=== PATIENT | male | born 1945 | race Caucasian/White ===

== ENCOUNTER 2019-03-25 01:23 | Inpatient (IN) | payer MEDICARE, OTHER ==
[~2019-03-25] VITALS: Ht 188 cm; Wt 102.9 kg
[~2019-03-25 01:23] MED LIST: ASCO500; ASPI81CH PO; CLARITIN10 MG; PRAV20 PO
[2019-03-25 02:10] LABS: BASOPHILS ABSOLUTE AUTO 0.06 K/mm3 (0.00-0.23); BASOPHILS PERCENT AUTO 1 % (0-2); EOSINOPHILS ABSOLUTE AUTO 0.27 K/mm3 (0.00-0.68); EOSINOPHILS PERCENT AUTO 3 % (0-6); Hematocrit 45.7 % (37.0-53.0); Hemoglobin 15.2 g/dL (13.5-17.5); IMMATURE GRAN ABSOLUTE AUTO 0.02 K/mm3 (0.00-0.10); IMMATURE GRAN PERCENT AUTO 0 % (0-1); LYMPHOCYTES PERCENT AUTO 36 % (21-46); MONOCYTES ABSOLUTE AUTO 0.66 K/mm3 (0.16-1.47); MONOCYTES PERCENT AUTO 8 % (4-13); Mean Corpuscular HGB 32.2 pg (26.0-34.0); Mean Corpuscular HGB Conc 33.3 g/dL (31.5-36.5); Mean Corpuscular Volume 97 fL (80-100); Mean Platelet Volume 9.8 fL (9.1-12.4); NEUTROPHILS ABSOLUTE AUTO 4.59 K/mm3 (1.96-9.15); NEUTROPHILS PERCENT AUTO 53 % (41-73); Platelet Count 241 K/mm3 (150-400); RDW Coefficient Variation 13.1 % (11.7-14.2); RDW Standard Deviation 47.1 fL (35.1-46.3); Red Blood Cell Count 4.72 M/mm3 (4.30-5.90)
[2019-03-25 02:29] LABS: Alanine Aminotransfer (ALT/SGP 20 U/L (12-78); Albumin, Blood 3.8 g/dL (3.4-5.0); Albumin/Globulin Ratio 1.2 (0.8-1.8); Alk Phos 72 U/L (50-136); Anion Gap 6 mmol/L (6-16); Aspartate Aminotrans (AST/SGOT 18 U/L (12-37); Bilirubin, Total 0.2 mg/dL (0.1-1.0); Blood Urea Nitrogen 20 mg/dL (8-24); Bun/Creatinine Ratio 27.3 (12.0-20.0); CO2, Blood 29 mmol/L (21-32); Calcium, Blood 8.9 mg/dL (8.5-10.1); Chloride, Blood 109 mmol/L (98-108); Creatinine, Blood 0.73 mg/dL (0.60-1.20); Globulin, Blood 3.3 g/dL (2.2-4.0); Glomerular Filtration Rate >60 (60-); Glucose, Blood 116 mg/dL (70-99); Potassium, Blood 4.2 mmol/L (3.5-5.5); Sodium, Blood 144 mmol/L (136-145); Total Protein, Blood 7.1 g/dL (6.4-8.2); Troponin I 0.033 ng/mL (0.000-0.040)
--- NOTE | 2019-03-25 06:34 | NUR ---
SHIFT SUMMARY PT NEW ADMIT TO FLOOR THIS AM AROUND 0500. AOX4. VSS. DENIES N/V/D, SOB. ADMITTED FOR CHEST PAIN/PRESSURE, HOWEVER DENIES ANY CHEST DISCOMFORT/PAIN OR PRESSURE DURING ASSESSMENT. TELE IN PLACE & PT SINUSBRADY W/HR 58 PER PCU PSYCHOLOGIST EXPERIMENTAL. STATES HE FELT CONFUSED WHEN HAVING CHEST PAIN EARLIER BUT NO LONGER IS CONFUSED. NPO EXCEPT MEDS & ICE CHIPS UNTIL STRESS TEST IS PERFORMED. @BEDSIDE. PT INDEPENDENT IN ROOM, HAS STEADY GAIT. CALL LIGHT IN REACH.
--- NOTE | 2019-03-25 10:00 | NUR ---
RECEIVED REPORT VIA TELEPHONE FROM CHAITANYA MIXON, PATIENT HAS ECHO DONE AT THIS TIME, SHE WILL BRING PATIENT TO ROOM 16 FROM ROOM 341 VIA WHEELCHAIR WHEN ECHO IS DONE.
--- NOTE | 2019-03-25 10:31 | NUR ---
CARDIOLOGY CONSULT DONE AND DR. GALINDO CALLED, HE WILL SEE PATIENT SOME TIME THIS AFTERNOON.
--- NOTE | 2019-03-25 10:40 | NUR ---
PATIENT ARRIVED FROM ROOM 341 VIA WHEELCHAIR, ABLE TO AMBULATE TO BED, PATIENT WAS WEIGHT AND SHOWED 102.6 KG, AFEBRILE WITH TEMP OF 97.7, PATIENT STATED THAT HE WAS SLIGHTLY ANXIOUS, BLOOD PRESSURES ELEVATED INTO 180'S SYSTOLICALLY, AND PATIENT UPDATED ON NEW ORDERS AND ORIENTED TO ROOM AND NEW ENVIRONMENT, ALL QUESTIONS ANSWERED, PATIENT IS ALERT AND ORIENTED, LUNG SOUNDS ARE CLEAR, NORMAL SINUS RHYTHM WITH HEART RATE IN 60'S, BOWEL TONES PRESENT AND HYPOACTIVE, PATIENT HAS BATHROOM PRIVILEGES AND IS ABLE TO USE TOILET IN ROOM, PLACED ON MONITOR, HEPARIN GTT STARTED AT 13 UNITS/KG/HR AT RATE OF 26.8 ML/HR, AFTER RECEIVING A HEPARIN BOLUS OF 7,725 UNITS IV, SECOND PIV WAS STARTED IN L FA 18G, PATIENT TOLERATED WELL, CALL LIGHT GIVEN AND EXPLAINED, PATIENT IS NPO AT THIS TIME, AT BEDSIDE, CALL LIGHT IN REACH, WILL CONTINUE TO MONITOR.
[2019-03-25 10:48] LABS: International Normalized Ratio 0.94
--- NOTE | 2019-03-25 10:51 | NUR ---
PT SECOND TROPONIN CAME BACK AT 1.750, DR WRIGHT NOTIFIED. PT WAS CURRENTLY DOWN AT IMAGING FOR FIRST PORTION OF STRESS TEST. WHEN PT BACK TO ROOM PT AMBULATING IN ROOM WITH NO COMPLAINTS. DR WRIGHT IN TO SEE PT AND ORDERS RECEIVED TO CANCEL SECOND PORTION OF STRESS TEST FOR TODAY, EKG COMPLETED, AND CARDIOLOGY CONSULT. PCU TRANSFER ORDERS RECEIVED. REPORT CALLED TO TE IN ICU, PT TRANSFERED TO ICU 16 PCU STATUS VIA W/C. SPOUSE AT BEDSIDE WITH PT.
[2019-03-25 11:10] LABS: CHOL/HDL RATIO 2.9; Cholesterol 150 mg/dL (50-200); HDL Cholesterol 51 mg/dL (>39); LDL/HDL RATIO 1.7; Low Density Lipoprotein Chol 84 mg/dL (0-110); Triglycerides 73 mg/dL (30-160); Very Low Density Lipoprot Chol 14 mg/dL (6-32)
--- NOTE | 2019-03-25 12:13 | NUR ---
DR. JAMISON IN TO SEE PATIENT, AFTER PHYSICIAN VISIT PATIENT HAD MULTIPLE QUESTIONS, THIS RN ASSISTED BY VENKATA WINCHESTER TRIED TO ANSWER ALL HIS QUESTIONS AND CONCERNS, PATIENT WILL THINK ABOUT ANGIOGRAM, ALSO UP TO ROOM TOILET TO URINATE, CALL LIGHT IN REACH, WILL CONTINUE TO MONITOR.
--- NOTE | 2019-03-25 12:39 | NUR ---
PROVIDED WRITTEN MATERIAL AND PRINT OUTS TO PATIENT, WILL ALSO PROVIDE TABLET WITH VIDEO ON HEART CATHETERIZATIONS.
--- NOTE | 2019-03-25 14:39 | NUR ---
IMAGING IN TO PERFORM ORDERED ECHO, AT BEDSIDE, QUESTIONS ANSWERED.
--- NOTE | 2019-03-25 15:00 | NUR ---
LAB CALLED WITH CRITICAL VALUE, TROPONIN 4.06, WHICH IS UP FROM 1.750 AT 1000 HOURS, DR. WRIGHT AND DR. GALINDO WERE BOTH NOTIFIED ABOUT CRITICAL LAB VALUE, NO NEW ORDERS RECEIVED.
--- NOTE | 2019-03-25 15:02 | NUR ---
DR. GALINDO IN TO SEE PATIENT.
--- NOTE | 2019-03-25 15:56 | NUR ---
DR. GALINDO SPOKE WITH PATIENT, NEW ORDERS RECEIVED.
--- NOTE | 2019-03-25 16:12 | NUR ---
PATIENT AND WERE PROVIDED A LAPTOP WITH VISUAL INFORMATION ABOUT HEART CATHETERIZATION AND STENT PLACEMENT.
--- NOTE | 2019-03-25 17:03 | NUR ---
PATIENT TECHNICALLY ON A CARDIAC/HEART HEALTHY DIET UNTIL MIDNIGHT, THEN NPO, PER DR. GALINDO, PATIENT SHOULD NOT HAVE "ANY HEAVY FOODS", PATIENT OPTED FOR JELLO AND ATE 3 JELLOS, PATIENT AND FOUND IPAD INSTRUCTIONS VERY HELPFUL, CALL LIGHT IN REACH, WILL CONTINUE TO MONITOR.
--- NOTE | 2019-03-25 17:44 | NUR ---
SHIFT SUMMARY NOTE: PATIENT IS RESTING WELL AND APPEARS MORE RELAXED AND LESS ANXIOUS AFTER TAKING XANAX 0.5 MG PO ORDERED, CONTINUES ON HEPARIN GTT AT 13 UNITS/KG/HR, DENIES PAIN, AFEBRILE, BLOOD PRESSURES ARE NOW IN 160'S, HR 57 AT THIS TIME, PATIENT IS ON RA SATING IN UPPER 90'S, AT BEDSIDE, FOR DETAILS SEE SHIFT ASSESSMENT DOCUMENTATION AND NURSES NOTES, CALL LIGHT IN REACH, WILL CONTINUE TO MONITOR AND GIVE REPORT TO ONCOMING HAZMAT TECHNICIAN.
[2019-03-26 03:49] LABS: BASOPHILS ABSOLUTE AUTO 0.05 K/mm3 (0.00-0.23); BASOPHILS PERCENT AUTO 1 % (0-2); EOSINOPHILS ABSOLUTE AUTO 0.22 K/mm3 (0.00-0.68); EOSINOPHILS PERCENT AUTO 2 % (0-6); Hematocrit 43.7 % (37.0-53.0); Hemoglobin 14.5 g/dL (13.5-17.5); IMMATURE GRAN ABSOLUTE AUTO 0.02 K/mm3 (0.00-0.10); IMMATURE GRAN PERCENT AUTO 0 % (0-1); LYMPHOCYTES ABSOLUTE AUTO 3.06 K/mm3 (0.84-5.20); LYMPHOCYTES PERCENT AUTO 33 % (21-46); MONOCYTES ABSOLUTE AUTO 0.76 K/mm3 (0.16-1.47); MONOCYTES PERCENT AUTO 8 % (4-13); Mean Corpuscular HGB 32.1 pg (26.0-34.0); Mean Corpuscular HGB Conc 33.2 g/dL (31.5-36.5); Mean Corpuscular Volume 97 fL (80-100); Mean Platelet Volume 9.7 fL (9.1-12.4); NEUTROPHILS PERCENT AUTO 56 % (41-73); Platelet Count 216 K/mm3 (150-400); RDW Coefficient Variation 13.3 % (11.7-14.2); RDW Standard Deviation 47.4 fL (35.1-46.3); Red Blood Cell Count 4.52 M/mm3 (4.30-5.90); White Blood Cell Count 9.41 K/mm3 (4.00-11.30)
[2019-03-26 04:08] LABS: Alanine Aminotransfer (ALT/SGP 21 U/L (12-78); Albumin, Blood 3.5 g/dL (3.4-5.0); Albumin/Globulin Ratio 1.2 (0.8-1.8); Alk Phos 69 U/L (50-136); Anion Gap 4 mmol/L (6-16); Aspartate Aminotrans (AST/SGOT 46 U/L (12-37); Bilirubin, Total 0.7 mg/dL (0.1-1.0); Blood Urea Nitrogen 12 mg/dL (8-24); Bun/Creatinine Ratio 17.1 (12.0-20.0); CO2, Blood 29 mmol/L (21-32); Calcium, Blood 8.4 mg/dL (8.5-10.1); Chloride, Blood 108 mmol/L (98-108); Globulin, Blood 2.9 g/dL (2.2-4.0); Glomerular Filtration Rate >60 (60-); Glucose, Blood 113 mg/dL (70-99); Potassium, Blood 3.8 mmol/L (3.5-5.5); Sodium, Blood 141 mmol/L (136-145); Total Protein, Blood 6.4 g/dL (6.4-8.2)
--- NOTE | 2019-03-26 06:38 | NUR ---
SHIFT SUMMARY PT HAS REMAINED AOX4 THROUGHOUT SHIFT. VSS. PLEASANT AND COOPERATIVE WITH CARE. PT HAS DENIED CHEST PAIN THROUGHOUT THE NIGHT. REPORTING SOME MILD ANXIETY RELATED TO UPCOMING PROCEDURE THAT DECREASED WITH ORDERED MEDICATION. HEPARIN DRIP INFUSING AT THIS TIME AND CONTINUES TO BE MANAGED PER PHARMACY. PT HAS REMAINED NPO SINCE MIDNIGHT EXCEPT FOR MEDICATIONS IN PREPARATION FOR PROCEDURE THIS AM. PT HAS RESTED WELL THROUGHOUT THE NIGHT AND CONTINUES TO UTILIZE URINAL INDEPENDENTLY AT THE BEDSIDE. NO OTHER CHANGES NOTED FROM INITIAL ASSESSMENT. WILL CONTINUE TO MONITOR AND REPORT TO ONCOMING SHIFT RN. BED IN LOW POSITION, CALL LIGHT IN REACH.
--- NOTE | 2019-03-26 07:35 | NUR ---
ASSUMED CARE: DR ARMANDO CAME TO SEE PT THIS MORNING. PT IS RESTING IN BED WITH AT BEDSIDE. PT DENIES CHEST PAIN OR FURTHER CONCERNS. NIGHT RN STATES SHE CALLED [facility] AT 0630 WITH NO FINAL TIME FOR CARDIAC CATH OF YET. PT AND AWARE OF NPO STATUS. NO FURTHER NEEDS OR CONCERNS AT THIS TIME.
--- NOTE | 2019-03-26 08:50 | NUR ---
PT TAKEN TO MAKER UP FOLDING AT THIS TIME. AT BEDSIDE AND AWARE
--- NOTE | 2019-03-26 10:51 | NUR ---
PT ARRIVED BACK TO UNIT. TR BAND IN PLACE. SITE SOFT, NONTENDER, NO SIGNS OF HEMATOMA OR BLEEDING AT THIS TIME. BRADYCARDIA NOTED WITH HR IN 40S. PT STATES DROWSY AT THIS TIME. PT HAS BEEN EDUCATED TO LIMIT USE OF RIGHT ARM. DR GALINDO CALLED FOR DR ARMANDO'S INFORMATION TO GIVE HIM AN UPDATE. THIS WAS PROVIDED
--- NOTE | 2019-03-26 14:35 | NUR ---
PT TRANSFERRED TO ROOM PCU 8. REPORT GIVEN TO CHAITANYA LUEVANO. NO FURTHER NEEDS OR CONCERNS. FAMILY AWARE AND AT BEDSIDE. TRANSFERRED VIA WHEEL CHAIR BY HOSPITAL STAFF
--- NOTE | 2019-03-26 16:35 | NUR ---
ASSUMED CARE.... ASSUMED CARE OF PT AT APROX 1630. PT IS S/P SENT PLACEMENT IN THE LAD. PT HAS TR BAND IN PLACE WITH NO BLEEDING NOTED. 2 MLS OF AIR HAD BEEN REMOVED IN THE ICU. PT WAS ABLE TO SELF TRANSFER FROM THE W/C TO THE BED. PT IS IND IN THE ROOM. PT'S VS STABLE, PT DENIES ANY CHEST PAIN/PRESSURE, N/V OR SOB. WILL CONTINUE TO MONITOR.
--- NOTE | 2019-03-26 18:45 | NUR ---
SHIFT SUMMARY. NO ACUTE CHANGES NOTED SINCE TRANSFER FROM ICU. PT'S VS HAVE BEEN STABLE. ALL THE AIR WAS REMOVED FROM THE TR BAND AT 1800. THERE WAS A SMALL AMOUNT OF BLEEDING NOTED DURING THE DEFLATION PROCESS, HOWEVER NO NEW BLEEDING IS NOTED SINCE ALL OF THE AIR HAS BEEN REMOVED. PT IS IND IN THE ROOM WITH FAMILY AT THE BEDSIDE. CALL LIGHT IN REACH, BED IS LOCKED AND LOW WILL CONTINUE TO MONITOR UNTIL REPORT IS GIVEN TO ONCOMING RN.
--- NOTE | 2019-03-26 20:00 | NUR ---
ASSUMED CARE- PT CARE ASSUMED AT APPROXIMATELY 1900. PT IS AOX4 AND INDEPENDENT IN ROOM. R RADIAL SITE WITH TR BAND IN PLACE THAT IS COMPLETELY DEFLATED. SCANT AMOUNT OF DRY, RED DRAINAGE NOTED UNDER TR BAND. BAND REMOVED AND CLEAR DRESSING PLACED OVER RADIAL SITE. NO NEW DRAINAGE, BRUISING, HEMATOMA, OR SWELLING NOTED. PT DENIES PAIN ON PALPATION. ARM BOARD PLACED AND PT EDUCATED ON MINIMIZING R WRIST ACTIVITY. WILL CONTINUE TO MONITOR AND ASSESS.
--- NOTE | 2019-03-27 05:49 | NUR ---
SHIFT SUMMARY PT HAS REMAINED AOX4 THROUGHOUT SHIFT. VSS. PLEASANT AND COOPERATIVE WITH CARE. PT CONTINUES TO AMBULATE INDEPENDENTLY IN THE ROOM WITHOUT DIFFICULTY. DENIES CHEST PAIN OR DYSPNEA. R RADIAL SITE WITH MINIMAL CHANGE THROUGHOUT THE NIGHT- SCANT AMOUNT OF RED DRAINAGE NOTED UNDER CLEAR DRESSING THAT IS PEA SIZED. NO BRUISING, SWELLING OR HEMATOMA NOTED TO R WRIST OR FOREARM, PT CONTINUES TO DENY PAIN ON PALPATION. ARM BOARD REMAINS IN PLACE. NO OTHER CHANGES FROM INITIAL ASSESSMENT. WILL CONTINUE TO MONITOR AND REPORT TO ONCOMING SHIFT RN. BED IN LOW POSITION, CALL LIGHT IN REACH.
[2019-03-27] MEDS ORDERED: ATOR40TA PO (14:58)
[2019-03-27] MEDS ORDERED: TICA90TA PO (14:59)
[2019-03-27] MEDS ORDERED: LO-DOSE ASPIRIN81 MG PO (15:00)
== END 2019-03-27 16:07 | disposition home or self-care (01) | DRG 247 ==
LOC: ER 01:23 → MEDS 01:24 → ICUW 01:24 → MEDS 05:03 → ICUW 10:21 → PCU 03-26 14:43
PROVIDERS: Emergency Medicine; Internal Medicine; ADMIT Hospitalist
PROC: 027034Z Dilation of Coronary Artery, One Artery with Drug-eluting Intraluminal Device, Percutaneous Approach (ICD-10-PCS; principal; 2019-03-26)
PROC: 02703ZZ Dilation of Coronary Artery, One Artery, Percutaneous Approach (ICD-10-PCS; 2019-03-26)
PROC: B240ZZ3 Ultrasonography of Single Coronary Artery, Intravascular (ICD-10-PCS; 2019-03-26)
PROC: B2161ZZ Fluoroscopy of Right and Left Heart using Low Osmolar Contrast (ICD-10-PCS; 2019-03-26)
DX: I21.4 Non-ST elevation (NSTEMI) myocardial infarction (principal); J30.2 Other seasonal allergic rhinitis; Z87.891 Personal history of nicotine dependence; Z79.82 Long term (current) use of aspirin; E78.5 Hyperlipidemia, unspecified; I25.10 Atherosclerotic heart disease of native coronary artery without angina pectoris
CPT/HCPCS: 36415; 70450; 71046; 78451; 80053; 80061; 83880; 84484; 85025; 85347; 85610; 85730; 92921; 93005; 93010; 93306; 93454; 96374; 96376; 99152; 99153; 99285-25; A9500; C1725; C1753; C1769; C1874; C1887; C1894; C9113; C9600; G0378; J1644; J2250; J2405; J3010; J7030; Q9967

== ENCOUNTER 2020-04-28 07:45 | Day surgery (SDC) | payer MEDICARE, BC ==
[~2020-04-28] VITALS: Ht 190.5 cm; Wt 99.1 kg
[~2020-04-28 07:45] MED LIST changes: +ATOR40TA PO; +LO-DOSE ASPIRIN81 MG PO; +Loratadine10 MG PO; +TICA90TA PO
== END 2020-04-28 09:51 | disposition home or self-care (01) ==
LOC: ORSCSDS 07:45
PROVIDERS: Internal Medicine Gastroenterology
PROC: 0DBH8ZX Excision of Cecum, Via Natural or Artificial Opening Endoscopic, Diagnostic (ICD-10-PCS; principal; 2020-04-28 09:00)
DX: Z12.11 Encounter for screening for malignant neoplasm of colon (principal); Z86.010 Personal history of colon polyps; D12.0 Benign neoplasm of cecum; K57.30 Diverticulosis of large intestine without perforation or abscess without bleeding; I25.2 Old myocardial infarction; K64.8 Other hemorrhoids; Z87.891 Personal history of nicotine dependence; Z79.82 Long term (current) use of aspirin; Z79.899 Other long term (current) drug therapy
CPT/HCPCS: 86803; 88305; J0330; J0461; J2405; J2704; J7120

== ENCOUNTER → 2021-07-08 | Outpatient (CLI) | payer MEDICARE, BC ==
[2021-07-08 19:40] LABS: BASOPHILS ABSOLUTE AUTO 0.04 K/mm3 (0.00-0.23); BASOPHILS PERCENT AUTO 1 % (0-2); EOSINOPHILS ABSOLUTE AUTO 0.19 K/mm3 (0.00-0.68); EOSINOPHILS PERCENT AUTO 3 % (0-6); Hemoglobin 14.9 g/dL (13.5-17.5); IMMATURE GRAN ABSOLUTE AUTO 0.02 K/mm3 (0.00-0.10); IMMATURE GRAN PERCENT AUTO 0 % (0-1); LYMPHOCYTES ABSOLUTE AUTO 1.29 K/mm3 (0.84-5.20); LYMPHOCYTES PERCENT AUTO 18 % (21-46); MONOCYTES ABSOLUTE AUTO 0.79 K/mm3 (0.16-1.47); MONOCYTES PERCENT AUTO 11 % (4-13); Mean Corpuscular HGB Conc 33.9 g/dL (31.5-36.5); Mean Corpuscular Volume 95 fL (80-100); Mean Platelet Volume 9.5 fL (9.1-12.4); NEUTROPHILS ABSOLUTE AUTO 5.04 K/mm3 (1.96-9.15); NEUTROPHILS PERCENT AUTO 68 % (41-73); Platelet Count 209 K/mm3 (150-400); RDW Coefficient Variation 13.3 % (11.7-14.2); RDW Standard Deviation 46.2 fL (35.1-46.3); Red Blood Cell Count 4.65 M/mm3 (4.30-5.90); White Blood Cell Count 7.37 K/mm3 (4.00-11.30)
[2021-07-08 19:51] LABS: Alanine Aminotransfer (ALT/SGP 23 U/L (12-78); Albumin/Globulin Ratio 1.1 (0.8-1.8); Alk Phos 101 U/L (40-126); Anion Gap 10 mmol/L (6-16); Aspartate Aminotrans (AST/SGOT 14 U/L (12-37); Bilirubin, Total 0.4 mg/dL (0.1-1.0); Blood Urea Nitrogen 13 mg/dL (8-24); Bun/Creatinine Ratio 15.1 (12.0-20.0); CO2, Blood 28 mmol/L (21-32); Calcium, Blood 8.9 mg/dL (8.5-10.1); Chloride, Blood 106 mmol/L (98-108); Creatinine, Blood 0.86 mg/dL (0.60-1.20); Globulin, Blood 3.7 g/dL (2.2-4.0); Glomerular Filtration Rate >60 (60-); Glucose, Blood 99 mg/dL (70-99); Potassium, Blood 3.7 mmol/L (3.5-5.5); Sodium, Blood 144 mmol/L (136-145); Total Protein, Blood 7.7 g/dL (6.4-8.2)
[2021-07-08 19:52] LABS: Troponin I <0.017 ng/mL (0.000-0.040)
== END | disposition home or self-care (01) ==
LOC: LAB 19:33 → LAB SHORT 19:33
PROVIDERS: Family Medicine
DX: R07.89 Other chest pain (principal)
CPT/HCPCS: 80053; 84484; 85025; 85379

== ENCOUNTER → 2022-03-02 | Outpatient (CLI) | payer MEDICARE, BC ==
[2022-03-02 12:33] LABS: White Blood Cells, Urine Not Seen /hpf (0-5)
[2022-03-02 12:34] LABS: Bacteria Not Seen /hpf; Red Blood Cells, Urine 0-2 /hpf (0-2); Squamous Epithelial Cells Rare /hpf (Few)
== END ==
LOC: LAB SHORT 12:13
PROVIDERS: Physician Assistant
DX: N39.0 Urinary tract infection, site not specified (principal)
CPT/HCPCS: 81015

== ENCOUNTER → 2023-03-22 | Outpatient (CLI) | payer MEDICARE, BC | LOC: LAB 08:47 → LAB SHORT 08:47 | DX: R73.9 Hyperglycemia, unspecified (principal) | CPT/HCPCS: 36415; 83036 ==

== ENCOUNTER 2024-08-23 09:08 | Day surgery (SDC) | payer MEDICARE, BC ==
[~2024-08-23] VITALS: Ht 188 cm; Wt 102.4 kg
[~2024-08-23 09:08] MED LIST changes: +ALLEGRA ALLERGY60 MG PO; +Balanced Salt Epinephrine Irrigation Solution 500 mL IR SCH; +Lidocaine HCl/Pf 1% 5 ML VIAL XX SCH; +METO50 PO; +Moxifloxacin HCL 0.5 MG/0.1 ML 0.4MLSYR LEFTEYE SCH; +PHENYLEPHRINE\\TROPICAMIDE\\TETRACAINE OPHTHALMIC DILATING SOLN LEFTEYE PRN; +Povidone-Iodine 450 DROP/30 ML Solution LEFTEYE SCH; +TAMSULOSIN HCL0.4 M1 PO; +Triamcinolone Inj Susp 40 MG / ML 1ML Vial INJ SCH; +Triamcinolone Inj Susp 40 MG / ML 1ML Vial ONE
[2024-08-23] MEDS ORDERED: Midazolam HCl 1MG / ML 2ML Vial ONE (09:11)
[2024-08-23] MEDS ORDERED: Tetracaine HCl 0.5% Opth Soln 15 ml LEFTEYE ONE (10:06)
[2024-08-23 10:33] VITALS: BP 135/65
== END 2024-08-23 10:45 | disposition home or self-care (01) ==
LOC: ORSCSDS 09:08
PROVIDERS: Ophthalmology
PROC: 08RK3JZ Replacement of Left Lens with Synthetic Substitute, Percutaneous Approach (ICD-10-PCS; principal; 2024-08-23 10:30)
DX: H25.812 Combined forms of age-related cataract, left eye (principal); Z96.1 Presence of intraocular lens; E78.5 Hyperlipidemia, unspecified; Z79.82 Long term (current) use of aspirin; Z79.899 Other long term (current) drug therapy
CPT/HCPCS: J2250; J3301; V2632